=== PATIENT | male | born 1995 | race American Indian/Alaskan Native ===

== ENCOUNTER 2016-08-20 04:15 | Emergency (ER) | payer OTHER ==
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
[2016-08-20] MEDS ORDERED: Acetaminophen/HYDROcodone 325-10 MG Tab PO ONE (04:25)
[2016-08-20 04:28] VITALS: BP 143/65
== END 2016-08-20 04:36 | disposition left against medical advice (07) ==
LOC: DL.ED 04:15
DX: S00.03XA Contusion of scalp, initial encounter (principal); F17.210 Nicotine dependence, cigarettes, uncomplicated; Y04.0XXA Assault by unarmed brawl or fight, initial encounter
CPT/HCPCS: 99284; A9270; 99283

== ENCOUNTER 2016-09-05 06:29 | Emergency (ER) | payer OTHER ==
[2016-09-05] MEDS ORDERED: Bacitracin Oint 1 GM U/D Packet TOP ONE (07:05)
[2016-09-05] MEDS ORDERED: Lidocaine 1% 30 ML SDV INJECT ONE (07:05)
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
[2016-09-05 07:22] LABS: CHLORIDE,CL 108 mmol/L (101-111); SODIUM,NA 140 mmol/L (135-145)
[2016-09-05 07:48] VITALS: BP 116/69
== END 2016-09-05 08:15 | disposition home or self-care (01) ==
LOC: DL.ED 06:29
DX: S01.81XA Laceration without foreign body of other part of head, initial encounter (principal); F17.210 Nicotine dependence, cigarettes, uncomplicated; Y04.2XXA Assault by strike against or bumped into by another person, initial encounter
CPT/HCPCS: 12011; 36415; 70486; 80053; 80305; 85025; 99282; 99284; G0480; 99283

== ENCOUNTER 2016-11-03 14:52 | Emergency (ER) | payer OTHER ==
[2016-11-03 15:11] VITALS: BP 139/78
[2016-11-03] MEDS ORDERED: Lidocaine 1% with EPINEPHrine 1:100,000 20 ML MDV INJECT ONE (15:22)
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
== END 2016-11-03 16:09 | disposition home or self-care (01) ==
LOC: DL.ED 14:52
DX: L02.415 Cutaneous abscess of right lower limb (principal); F17.210 Nicotine dependence, cigarettes, uncomplicated
CPT/HCPCS: 10061; 99283